=== PATIENT | male | born 1965 | race Caucasian/White ===

== ENCOUNTER 2018-08-06 01:40 | Emergency (ER) | payer SELFPAY ==
[~2018-08-06] VITALS: Ht 177.8 cm; Wt 77.1 kg
--- NOTE | 2018-08-06 01:46 | NUR ---
JULIANE FROM HOME. AAOX4. PT RESTLESS AND UNCONTROLLED EXTREMETIES MOVING. PT APPEARS ANXIOUS. PT IS RESPONSIVE TO VERBAL AND TACTILE STIMULIS. CAME IN FOR CONSUMPTION OF EDIBLE MARIJUANA 20MG AN HOUR AGO FOR THE FIRST TIME. DENIES CP. NO N/V. AT BEDSIDE FOR EVAL.
--- NOTE | 2018-08-06 01:55 | NUR ---
IV LINE OBTAINED ON R AC 18G. LAB AT BEDSIDE, BLOOD DRAWN.
[2018-08-06] MEDS ORDERED: OLANZAPINE 10 MG VIAL IM ONE ×2 (01:58→02:00)
[2018-08-06] MEDS ORDERED: LORAZEPAM INJ 2 MG/ML VIAL IVP ONE (02:00)
--- NOTE | 2018-08-06 02:00 | NUR ---
EKG AT BEDSIDE.
[2018-08-06 02:02] LABS: BASOPHILS % (AUTO) 0.4 % (0.0-2.0); EOSINOPHILS % (AUTO) 2.3 % (0.0-6.0); HEMATOCRIT 43 % (39-51); HEMOGLOBIN 14.6 g/dL (13.5-17.5); LYMPHOCYTES # (AUTO) 1.4 /CMM (0.8-4.8); LYMPHOCYTES % (AUTO) 25.8 % (20.0-44.0); MEAN CORPUSCULAR HGB CONC 34 g/dl (31.0-36.0); MEAN CORPUSCULAR VOLUME 91 fL (80-96); MONOCYTES # (AUTO) 0.4 /CMM (0.1-1.30); MONOCYTES % (AUTO) 7.5 % (2.0-12.0); NEUTROPHILS # (AUTO) 3.6 /CMM (1.8-8.9); PLATELET COUNT (AUTO) 155 /CMM (150-450); RED BLOOD CELL COUNT(AUTO) 4.72 MIL/uL (4.5-6.0); WHITE BLOOD COUNT (AUTO) 5.6 K/uL (4.3-11.0)
[2018-08-06 02:08] LABS: CALCIUM, SERUM 8.2 mg/dL (8.5-10.1); CARBON DIOXIDE 25 mmol/L (21-32); CHLORIDE 105 mmol/L (98-107); GLUCOSE 180 mg/dL (74-106); POTASSIUM 3.3 mmol/L (3.5-5.1); SODIUM SERUM 142 mmol/L (136-145); UREA NITROGEN, BLOOD 18 mg/dL (7-18)
[2018-08-06 02:08] LABS: APPEARANCE,URINE Clear (CLEAR); BILIRUBIN,URINE Negative (NEGATIVE); BLOOD, URINE Negative Ery/uL (NEGATIVE); COLOR,URINE Yellow (YELLOW); KETONES,URINE Trace (NEGATIVE); LEUKOCYTE ESTERASE ,URINE Negative (NEGATIVE); NITRITE, URINE Negative (NEGATIVE); PROTEIN,URINE Negative (NEGATIVE); UGLUCOSE Negative (NEGATIVE); UROBILINOGEN,URINE 0.2 EU/dL (0.2)
--- NOTE | 2018-08-06 02:08 | NUR ---
URINE SPECIMEN COLLECTED. SENT TO LAB
[2018-08-06 02:23] LABS: ALANINE AMINOTRANSFERASE 29 U/L (12-78); ALBUMIN 3.9 g/dL (3.4-5.0); ALCOHOL, BLOOD < 3 mg/dL (0-0); ALKALINE PHOSPHATASE 70 U/L (46-116); ASPARTATE AMINOTRANSFERASE 21 U/L (15-37); BILIRUBIN,DIRECT 0.2 mg/dL (0.0-0.2); BILIRUBIN,TOTAL 1.1 mg/dL (0.2-1.0)
[2018-08-06 02:25] LABS: BACTERIA,URINE None seen /HPF (None Seen); MUCUS,URINE Few /LPF (None Seen); RBC,URINE 0-2 /HPF (0-2); SQUAMOUS EPITHELIAL CELL,UR Few /HPF (None Seen); WBC,URINE 0-2 /HPF (0-3)
[2018-08-06 02:27] LABS: ACETAMINOPHEN 0 ug/ml (10-30); SALICYLATE < 0.2 mg/dL (2.8-20.0)
--- NOTE | 2018-08-06 02:47 | NUR ---
PT NOTED CALM AND SLEEPING. PT'S BROTHER AT BEDSIDE.
--- NOTE | 2018-08-06 05:07 | NUR ---
AT BEDSIDE TALKING TO PT'S BROTHER
--- NOTE | 2018-08-06 05:30 | NUR ---
O2 REMOVED BY PT. NO NOTED DESAT WHILE PT SLEEPING. O2 SAT 95-97% ON RA
--- NOTE | 2018-08-06 05:46 | NUR ---
MAYKEL TELLEZ (BROTHER) [phone] - CALL FOR ANY UPDATES OR WHEN PT WAKES UP.
--- NOTE | 2018-08-06 07:07 | NUR ---
PT IN BED SLEEPING. NO NOTED DISTRESS. STILL ON MONITOR. WILL CONTINUE TO MONITOR
--- NOTE | 2018-08-06 08:45 | NUR ---
PT IS SLEEPING. EASILY AROUSABLE. ON MONITOR W/ STABLE VITALS.
--- NOTE | 2018-08-06 10:21 | NUR ---
BROTHER AT BEDSIDE TO TAKE PT HOME. AMBULATORY W/ STEADY GAIT. VSS. IV removed. Catheter intact and site benign. Pressure and 4x4 applied to site. No bleeding noted.
[2018-08-06 10:23] VITALS: BP 106/57
== END 2018-08-06 10:24 | disposition home or self-care (01) ==
LOC: ER 01:43
DX: F12.929 Cannabis use, unspecified with intoxication, unspecified (principal); F41.9 Anxiety disorder, unspecified; I44.0 Atrioventricular block, first degree
CPT/HCPCS: 36415; 80048; 80076; 80305; 80307; 80329; 81001; 85025; 93005; 96372; 96374; 99284; G0480; J2060; J3490; 81000-TC